=== PATIENT | male | born 1935 | race Two or more races ===

== ENCOUNTER 2017-03-07 14:58 | Emergency (ER) | payer MEDICARE, OTHER ==
--- NOTE | ~2017-03-07 | ER ---
PATIENT'S NAME: [facility] AGE: 82 Y [address] ROOM: [place] [address] LOCATION: [facility] ADMIT DATE: 03/07/2017 ER/Outpatient Report DISCHARGE DATE: 03/07/2017 FAMILY PHYSICIAN: Darrion Santoyo MD ATTENDING PHYSICIAN: Jose Francisco Mcbride Time of Arrival: 1500 hours. Time of Evaluation: 1501 hours. CHIEF COMPLAINT: Right lateral chest pain. HISTORY OF PRESENT ILLNESS: The patient states that he has a problem with his blood pressure dropping when he gets up and it causes him to fall frequently. He states he last fell two days ago and hit his right lateral chest, right back area, and is having some discomfort since then. His [id number]'s who are here with him reports that he has fallen frequently over the past month. The patient states he has talked to his primary provider Dr. Santoyo regarding this. He denies having any chest pain. Denies having a cough or discomfort. Denies having any pain when he goes to take a deep breath, but it is painful to touch the lateral rib area. ALLERGIES: HE HAS NO KNOWN ALLERGIES. CURRENT MEDICATIONS: On his chart and reviewed by me. PAST MEDICAL HISTORY: Hepatitis, noninsulin-dependent diabetes, hypertension, hypokalemia, coronary artery disease, anxiety, depression, elevated cholesterol, sleep apnea. PAST SURGICAL HISTORY: Include cholecystectomy, right inguinal hernia, TURP, coronary artery bypass graft. SOCIAL HISTORY: He denies the use of tobacco, drugs, or alcohol. REVIEW OF SYSTEMS: Negative other than those mentioned in the HPI. PHYSICAL EXAMINATION: VITAL SIGNS: He weighed 89.2 kg, blood pressure was 136/69, pulse is 66, PATIENT'S NAME: GWENDOLYN BHATTI [facility] AGE: 82 Y [address] ROOM: [place] [address] LOCATION: [facility] ADMIT DATE: 03/07/2017 ER/Outpatient Report DISCHARGE DATE: 03/07/2017 FAMILY PHYSICIAN: Darrion Santoyo MD ATTENDING PHYSICIAN: Jose Francisco Mcbride respirations 16, temperature of 96.6 tympanic, O2 saturation is 97% on room air. GENERAL: He is awake, alert, and oriented x4. SKIN: [place], warm, and dry. RESPIRATIONS: Even and nonlabored. HEENT: Pupils are equal reactive to light. Extraocular movement is intact. LUNGS: Sounds are clear throughout. HEART: Regular rate and rhythm. ABDOMEN: Soft, nondistended. Bowel sounds are present. EXTREMITIES: He walked in with use of a cane, moves all extremities strongly and equally. No peripheral edema is noted. He is tender to palpate on the right lateral rib area. No bruising is noted. No deformity is seen. Did do orthostatic blood pressures. Lying was 174/78 with a pulse is 75, sitting 121/81 with a pulse of 80, standing 125/51 with a pulse of 84. DIAGNOSTIC DATA: The patient was laid back down. Saline lock was initiated. Lab work was drawn. Fluids of normal saline were started at a wide-open rate. EKG was completed. It shows sinus rhythm. CBC is within normal limits. PT/PTT is normal. Lactate was 1.5. Chem Panel: Sodium is 139, potassium is 4 with the chloride of 107. Cardiac enzymes are negative. Procalcitonin was negative. X-ray of the right ribs was completed. No bony abnormality was seen. We will await radiology report. The patient was monitored. He remained in a sinus rhythm. On dismissal, his blood pressure was 179/80. He denied being dizzy or lightheaded when he sat up. IMPRESSION: 1. Right lateral chest pain due to fall. 2. Orthostatic hypotension. PLAN: The patient will be discharged to home. He was instructed on slowly going from a sitting or lying position to a standing position. He is to continue use his cane. Encouraged him to follow up with his primary provider in the next 2 to 3 days. He and his family verbalized understanding. SURI BEASLEY APRN FOR DO CARMELO VELAZQUEZ/mary /[id number] d: 03/07/[id number] t: 03/14/172044, OUTPATIENT REPORT
[~2017-03-07 14:58] MED LIST: ASPIR 8181 MG PO; BUSPAR5 MG PO; FISH OIL1000 MG PO; FLAGYL500 MG PO; FLOMAX0.4 MG PO; FLORASTOR250 MG PO; FLORINEF0.1 MG PO; GLUCOPHAGE XR500 M1 PO; GLUCOTROL 5MG XL5 MG PO; HYTRIN UD5 MG PO; K-TAB ER20 MEQ PO; LEVAQUIN250 MG PO; NORCO 5-325 MG1 TAB PO; NORVASC5 MG PO; PAXIL10 MG PO; PAXIL30 MG PO; PROSCAR5 MG PO; PROTONIX40 MG PO; TYLENOL325 MG PO; VITAMIN B-1000 MCG/M IM; WELLBUTRIN75 MG PO; ZOCOR20 M1 PO; ZOFRAN4 MG PO
[2017-03-07 15:29] LABS: BASOPHIL % 0.2 %; EOSINOPHIL # 0.1 K/uL (0.0-0.5); EOSINOPHIL % 0.6 %; HEMATOCRIT 41.5 % (33.0-50.0); HEMOGLOBIN 14.6 g/dL (11.0-16.0); IMMATURE GRANULOCYTE % 0.3 %; LYMPHOCYTE # 1.8 K/uL (0.8-4.0); LYMPHOCYTE % 18.2 %; MCH 29.7 pg (27.0-34.0); MCHC 35.2 gm/dL (32.0-36.5); MCV 84.3 fl (83.0-98.0); MONOCYTE # 0.9 K/uL (0.0-1.0); MONOCYTE % 8.8 %; MPV 10.6 fl (9.4-12.4); NEUTROPHIL # (ANC) 6.9 K/uL (1.4-9.0); NEUTROPHIL % 71.9 %; NRBC % 0 /100WBC (0-0.00); PLATELET COUNT 249 K/uL (150-450); RBC 4.92 M/uL (3.50-5.50); RDW-CV 13.2 % (11.9-14.6); WBC 9.6 K/uL (4.0-11.0)
[2017-03-07 15:40] LABS: INR - (THERAPEUTIC) 0.95 (0.92-1.07)
[2017-03-07 15:51] LABS: ALBUMIN 2.9 gm/dL (3.5-5.0); ALK PHOS 107 IU/L (33-138); ALT 24 IU/L (12-78); AST 16 IU/L (10-40); BLOOD UREA NITROGEN 23 mg/dL (6-24); CALCIUM 8.4 mg/dL (8.5-10.5); CHLORIDE 107 mMol/L (96-110); CO2 23 mMol/L (22-32); CPK 50 IU/L (35-332); CREATININE 1.2 mg/dL (0.6-1.3); SODIUM 139 mMol/L (135-145); TOTAL BILIRUBIN 0.5 mg/dL (0.0-1.5); TOTAL PROTEIN 6.5 g/dL (6.0-8.4)
== END 2017-03-07 16:32 | disposition disaster alternative care site (69) ==
LOC: GMED 14:58
PROVIDERS: Emergency Medicine
DX: R07.81 Pleurodynia (principal); I95.1 Orthostatic hypotension; E11.9 Type 2 diabetes mellitus without complications; I10 Essential (primary) hypertension; I25.10 Atherosclerotic heart disease of native coronary artery without angina pectoris; F41.9 Anxiety disorder, unspecified; F32.9 Major depressive disorder, single episode, unspecified; G47.30 Sleep apnea, unspecified; E78.00 Pure hypercholesterolemia, unspecified; Z98.890 Other specified postprocedural states; Z79.82 Long term (current) use of aspirin; Z79.84 Long term (current) use of oral hypoglycemic drugs; Z79.899 Other long term (current) drug therapy; W19.XXXA Unspecified fall, initial encounter
CPT/HCPCS: J7030